=== PATIENT | female | born 1965 | race Caucasian/White ===

== ENCOUNTER → 2017-02-16 | Outpatient (CLI) | payer BC ==
--- NOTE | 2017-02-16 09:44 | RAD ---
MR of the right knee HISTORY: Medial pain for 2 weeks after weight lifting. TECHNIQUE: Routine multiplanar sequences are obtained. FINDINGS: There is mild irregularity at the undersurface of the posterior horn of the medial meniscus, with mild signal, compatible with a small tear. This is mostly peripheral. No evidence of lateral meniscal tear. Anterior and posterior cruciate ligaments are intact. Medial collateral ligament is intact. Iliotibial band, fibular collateral ligament, biceps femoris tendon and popliteus tendon are intact. Mild thickening and signal within the proximal patellar tendon compatible with tendinosis. Only trace joint fluid. No evidence of osteochondral loose body. Mild chondromalacia of the medial joint compartment. Moderate chondromalacia at the patellofemoral joint compartment. Mild edema within the infrapatellar fat and within the prepatellar subcutaneous tissues. No aggressive bone destruction or acute macro fracture. Tiny cyst or ganglion along the posterior tibiofibular joint IMPRESSION: 1. Small undersurface tear of the posterior horn of the medial meniscus. 2. Primary osteoarthritis. 3. Contusion or inflammation within the infrapatellar fat. 4. Mild proximal patellar tendinosis. Electronically signed by: Hussain Gosnalez MD (02/16/2017 9:41 AM)
== END | disposition home or self-care (01) ==
LOC: MRI 08:21
PROVIDERS: ATTEND Nurse Practitioner Gerontology
DX: M17.11 Unilateral primary osteoarthritis, right knee (principal)
CPT/HCPCS: 73721